=== PATIENT | male | born 1985 | race Caucasian/White ===

== ENCOUNTER 2019-10-23 18:55 | Emergency (ER) | payer SELFPAY ==
[2019-10-23] MEDS ORDERED: FAMOTIDINE 20 MG TABLET PO ONE (20:04)
[2019-10-23] MEDS ORDERED: METHYLPREDNISOLONE INJ 125 MG/2 ML SDV IM ONE (20:05)
--- NOTE | 2019-10-23 20:08 | ER Document Report ---
ED Medical Screen (RME) - General Chief Complaint: Facial Swelling Stated Complaint: SWOLLEN LIP Time Seen by Provider: 10/23/19 20:04 Mode of Arrival: Ambulatory Information source: Patient Notes: 34-year-old male presented to ED for swelling to the right side of his lip and chin. He states the lip started about an hour ago the chin started over the weekend. He also has a blood pressure of trouble over trouble. He states every time he gets his blood pressure that it is that high and he has not been on any medications. He states a couple weeks ago he did have some numbness and tingli ng to his fingers. I will treat him with some Solu-Medrol IM and some Pepcid and then he will be seen by SERJIO Rice to follow-up on his blood pressure. I have ordered some blood work for him to base his blood pressure medication on. Patient is alert oriented respirations regular and unlabored speaking in full sentences. Patient is agreeable to this. I have greeted and performed a rapid initial assessment of this patient. A comprehensive ED assessment and evaluation of the patient, analysis of test results and completion of medical decision making process will be conducted by an additional ED providers. - Related Data Allergies/Adverse Reactions: No Known Allergies Allergy (Unverified 10/23/19 19:50) Home Medications: denies Past Medical History - Social History Chew tobacco use (# tins/day): No Frequency of alcohol use: Social Drug Abuse: None Physical Exam - Vital signs Vitals: Temp Pulse Resp BP Pulse Ox 98.1 F 67 16 174/106 H 98 10/23/19 19:26 10/23/19 19:26 10/23/19 19:26 10/23/19 19:26 10/23/19 19:26 Course - Vital Signs Vital signs: Temp Pulse Resp BP Pulse Ox 98.1 F 85 16 149/99 H 100 10/23/19 19:51 10/23/19 20:03 10/23/19 20:03 10/23/19 20:03 10/23/19 20:03
[2019-10-23 20:43] LABS: ABSOLUTE EOSINOPHILS # (AUTO) 0.3 10^3/uL (0.0-0.6); ABSOLUTE LYMPHOCYTES (AUTO) 2.4 10^3/uL (0.5-4.7); ABSOLUTE MONOCYTES (AUTO) 0.5 10^3/uL (0.1-1.4); ABSOLUTE NEUT (AUTO) 5.7 10^3/uL (1.7-8.2); BASOPHILS % (AUTO) 0.3 % (0-2); EOSINOPHILS % (AUTO) 3.3 % (0-6); HEMATOCRIT 44.5 % (37.9-51.0); HEMOGLOBIN 15.3 g/dL (13.5-17.0); LYMPHOCYTES % (AUTO) 27.2 % (13-45); MEAN CORPUSCULAR HEMOGLOBIN 29.9 pg (27.0-33.4); MEAN CORPUSCULAR HGB CONC 34.3 g/dL (32.0-36.0); MEAN CORPUSCULAR VOLUME 87 fl (80-97); MONOCYTES % (AUTO) 5.5 % (3-13); PLATELET COUNT 183 10^3/uL (150-450); RED BLOOD COUNT 5.11 10^6/uL (4.35-5.55); RED CELL DISTRIBUTION WIDTH 13.1 % (11.5-14.0); SEGMENTED NEUTROPHILS % (AUTO) 63.7 % (42-78); TOTAL CELLS COUNTED % (AUTO) 100 %
[2019-10-23 20:46] LABS: APPEARANCE,URINE SLIGHTLY-CLOUDY; BILIRUBIN,URINE NEGATIVE (NEGATIVE); COLOR,URINE YELLOW; GLUCOSE, URINE NEGATIVE (NEGATIVE); KETONES,URINE TRACE mg/dL (NEGATIVE); LEUKOCYTE ESTERASE,URINE NEGATIVE (NEGATIVE); NITRITE,URINE NEGATIVE (NEGATIVE); PROTEIN,URINE NEGATIVE (NEGATIVE); URINE SPECIFIC GRAVITY 1.024; UROBILINOGEN,URINE NEGATIVE mg/dL (<2.0)
[2019-10-23 20:59] LABS: ALBUMIN 4.8 g/dL (3.5-5.0); ALKALINE PHOSPHATASE 86 U/L (38-126); ANION GAP 11 (5-19); ASPARTATE AMINO TRANSFERASE 25 U/L (17-59); BILIRUBIN,TOTAL 0.7 mg/dL (0.2-1.3); BLOOD UREA NITROGEN 14 mg/dL (7-20); CALCIUM 9.6 mg/dL (8.4-10.2); CARBON DIOXIDE 28 mmol/L (22-30); CHLORIDE 102 mmol/L (98-107); GLUCOSE 96 mg/dL (75-110); POTASSIUM 4.4 mmol/L (3.6-5.0)
[2019-10-23 22:08] VITALS: BP 139/93
--- NOTE | 2019-10-23 22:11 | ER Document Report ---
ED Allergic Reaction - General Chief Complaint: Facial Swelling Stated Complaint: SWOLLEN LIP Time Seen by Provider: 10/23/19 20:04 Mode of Arrival: Ambulatory Information source: Patient Notes: Patient is a 34-year-old male comes emergency room stating that the right side of his right upper lip is swollen. Patient states he noticed it started after he drank some coffee from 1 of the [employer] type [employer]. There occurred almost 20 minutes after the coffee. Patient denies any other known allergen type of a presentation. It was noted that while here in the emergency room patient's blood pressure was elevated in excess of 179/106. Heart rate was normal around 85. Patient states that he has a history of hypertension but is only been treated for it one time in his life with some hydrochlorothiazide and states that it did not really help that much. He denies any headache shortness of breath chest pain. Patient was originally here only for the allergic reaction but decided to be somewhat evaluated so he can get blood pressure medications to help control his blood pressure. TRAVEL OUTSIDE OF THE [place] IN LAST 30 DAYS: No - HPI Onset: Just prior to arrival Onset/Duration: Sudden Quality of pain: No pain Severity: Mild Pain Level: 2 Identified cause: No Swelling: Lip(s) - Right upper lip only Associated symptoms: None Similar symptoms previously: No Recently seen / treated by doctor: No - Related Data Allergies/Adverse Reactions: No Known Allergies Allergy (Unverified 10/23/19 19:50) Home Medications: denies Past Medical History - General Information source: Patient - Social History Smoking Status: Never Smoker Cigarette use (# per day): No Smoking Education Provided: No Frequency of alcohol use: Social Drug Abuse: None Lives with: Family Family History: None, Reviewed & Not Pertinent Patient has homicidal ideation: No Review of Systems - Review of Systems Constitutional: No symptoms reported EENT: Mouth swelling Cardiovascular: No symptoms reported Respiratory: No symptoms reported Gastrointestinal: No symptoms reported Genitourinary: No symptoms reported Male Genitourinary: No symptoms reported Musculoskeletal: No symptoms reported Skin: No symptoms reported Hematologic/Lymphatic: No symptoms reported Neurological/Psychological: No symptoms reported Physical Exam - Vital signs Vitals: Temp Pulse Resp BP Pulse Ox 98.1 F 67 16 174/106 H 98 10/23/19 19:26 10/23/19 19:26 10/23/19 19:26 10/23/19 19:26 10/23/19 19:26 Interpretation: Hypertensive - Notes Notes: PHYSICAL EXAMINATION: GENERAL: Well-appearing, well-nourished and in no acute distress. HEAD: Atraumatic, normocephalic. EYES: Pupils equal round and reactive to light, extraocular movements intact, sclera anicteric, conjunctiva are normal. ENT: Examination patient very concerned his right upper lip. Patient has some edema of the right upper lip does not cross over the centerline of the frenulum. Lower lip is all normal appearance. Oral mucosa is normal. Also noted p loni's right lower mandibular area almost close to the clip the chin there is a bald spot appeared that the is shaved secondary to patient having a area that was slightly tender to touch. Palpation of the area shows this to be nonfluctuant but does show it to have a possibility of a cellulitis secondary to a folliculitis start up. NECK: Normal range of motion, supple without lymphadenopathy LUNGS: Breath sounds clear to auscultation bilaterally and equal. No wheezes rales or rhonchi. HEART: Regular rate and rhythm without murmurs ABDOMEN: Soft, nontender, nondistended abdomen. No guarding, no rebound. No masses appreciated. Musculoskeletal: Normal range of motion, no pitting or edema. No cyanosis. NEUROLOGICAL: Normal speech, normal gait. Normal sensory, motor exams PSYCH: Normal mood, normal affect. SKIN: Warm, Dry, as described above patient has that one area in his right lower chin that appears to be a progressing type cellulitis with nonindurated area. Course - Re-evaluation Re-evalutation: 10/23/19 22:16 Patient's labs all came back normal. Given his couple different presentations the right upper lip appears to been an allergic reaction localized to the area. He did get relief by having the Solu-Medrol has gone down substantially but not completely. The second concern was his hypertension and we have had a long discussion emphasizing this with patient which is primarily why his labs were done that does not show any renal failure or function problems. I have discussed with patient I am going to place him on some antibiotics also for the cellulitis of the area. We will continue him as well on a couple of days of steroids for inflammation of the upper right lip. He has no known allergies to medications. - Vital Signs Vital signs: Temp Pulse Resp BP Pulse Ox 98.3 F 67 18 139/93 H 67 L 10/23/19 22:07 10/23/19 22:07 10/23/19 22:07 10/23/19 22:07 10/23/19 22:07 - Laboratory Result Diagrams: 10/23/19 20:20 10/23/19 20:20 Laboratory results interpreted by me: 10/23/19 20:20 Urine Ketones TRACE H Discharge - Discharge Clinical Impression: Cellulitis of chin Allergic reaction Qualifiers: Encounter type: initial encounter Qualified Code(s): T78.40XA - Allergy, unspecified, initial encounter Hypertension Qualifiers: Hypertension type: essential hypertension Qualified Code(s): I10 - Essential (primary) hypertension Condition: Stable Disposition: HOME, SELF-CARE Instructions: High Blood Pressure ([facility]), Cellulitis ([facility]), Acute Allergic Reaction ([facility]) Additional Instructions: CELLULITIS: You have an infection of your skin and underlying soft tissues called cellulitis. This is due to bacteria, which can enter through any break in the skin, or even through an irritated hair follicle. Untreated, cellulitis will usually worsen. Antibiotics are required. Usually, warm packs or warm soaks, and elevation of the infected area are recommended. You should start getting better within 24 to 36 hours. Most infections respond quickly to the right medication. Follow-up care is important, however, to check for abscess (boil) formation, unsuspected foreign body, or resistant infection. If you develop fever, chills, or if the area of infection is becoming rapidly more swollen or painful, call the doctor at once. MRSA CELLULITIS: You have an infection of your skin and underlying soft tissues called cellulitis. This is due to bacteria, which can enter through any break in the skin, or even through an irritated hair follicle. Untreated, cellulitis will usually worsen and may form an abscess which requires draining. Although many bacterial organisms can cause cellulitis and abscess formations, the most likely bacteria is Methicillin-Resistant Staph Aureus, or MRSA for short. Antibiotics are required. Usually, warm packs or warm soaks, and elevation of the infected area are recommended. You should start getting better within 24 to 36 hours. Most infections respond quickly to the right medication. Follow-up care is important, however, to check for abscess (boil) formation, unsuspected foreign body, or resistant infection. If you develop fever, chills, or if the area of infection is becoming rapidly more swollen or painful, call the doctor at once. ANTIBIOTIC THERAPY: You have been given an antibiotic prescription. It's important that you take all the medication, unless instructed otherwise by your physician. Failure to complete the entire course can result in relapse of your condition. Common side effects of antibiotics include nausea, intestinal cramping, or diarrhea. Women may develop vaginal yeast infections, and babies can get yeast (thrush) in the mouth following the use of antibiotics. Contact your physician if you develop significant side effects from this medication. Allergy to this antibiotic can result in hives, wheezing, faintness, or itching. If symptoms of allergy occur, stop the medication and call the doctor. DOXYCYCLINE: Doxycycline (Vibramycin, Doryx) is an antibiotic of the tetracycline family. This type of drug is useful for infections of the respiratory tract and genital tract, and is sometimes used for intestinal infections. Unlike most tetracyclines, doxycycline can be taken with food. It is longer acting, and (usually) less prone to side effects than regular tetracycline. Tetracycline antibiotics can stain immature teeth and SHOULD NOT BE TAKEN BY CHILDREN, NURSING MOTHERS, OR WOMEN. Tetracyclines can make you more prone to sunburn. Abdominal cramping, nausea, and diarrhea are occasional side effects. Women may experience vaginal yeast infections. Call the doctor at once if you develop hives, itching, shortness of breath, or lightheadedness.HIGH BLOOD PRESSURE, NOT TREAT: When your blood pressure was taken today it was elevated. Today's reading was . We do not think you need to have your blood pressure treated today. Sometimes, stress or illness causes a temporary elevation of your blood pressure. We suggest that you get your blood pressure measured again during the next few days to see if this elevated blood pressure is more than a temporary abnormality. If your blood pressure is greater than 150/90 on each occasion, you must have treatment. Some simple things you can do to help are: If you have blood pressure medicine but aren't using it regularly, start taking it again. Get some aerobic exercise for at least 20 minutes on a daily basis. (See your doctor before beginning a new exercise program.) Eat a low-fat diet. Lose excess weight. Avoid salty foods and avoid adding salt to any of the foods you eat. Avoid diet pills, decongestants, "energizing" herbs, and other medicines that elevate blood pressure. If left untreated, hypertension greatly enhances your risk for developing heart disease and strokes. Please don't ignore this problem. HIGH BLOOD PRESSURE REQUIRING TREATMENT: Your blood pressure is high. This is called "hypertension." Today's reading was (normal is less than 140/90). Your history and exam suggest that this is not a temporary problem. You need treatment of your blood pressure. If left untreated, high blood pressure greatly increases your risk of heart attack and stroke. Please don't ignore this problem. If you have blood pressure medicine but aren't using it regularly, start taking it again. Some simple things you can do to help are: Get some aerobic exercise for at least 20 minutes on a daily basis. (See your doctor before beginning any new exercise program.) Eat a low-fat diet. Lose excess weight. Avoid salty foods and avoid adding salt to any of the foods you eat. Avoid diet pills, decongesta nts, "energizing" herbs, and other medicines that elevate blood pressure. There are many different medicines that treat blood pressure. If your medication causes unpleasant side effects, call your doctor. There are others you can try. Treating hypertension is a life-long investment in your health. C HYDROCHLOROTHIAZIDE: Hydrochlorothiazide is a diuretic medication. Diuretics are often called "water pills." The medicine flushes excess salt and water from the body. Diuretics are used for fluid retention (such as heart failure, cirrhosis, or lung disease) and for blood pressure control. Often hydrochlorothiazide is combined with other medicines in the same pill. Most patients prefer to take the medicine in the morning. Hydrochlorothiazide makes extra urine, which can be a problem if you take the pill at night. Diuretics make you lose potassium. Sometimes a good diet with plenty of fruit is enough to replace it. Sometimes a potassium supplement is necessary. Or, hydrochlorothiazide may be combined with medicines that prevent potassium loss. We usually recommend a blood potassium test in a few weeks. Contact your doctor if you develop extreme fatigue, muscle weakness, lethargy, confusion, or palpitations. CALCIUM CHANNEL BLOCKERS: A medication of the calcium channel anali type has been prescribed for you. Examples of this type of medicine are Calan, Isoptin, Procardia, and Cardizem. These medicines have a variety of uses, including prevention of angina attacks, treatment of blood pressure, regulation of certain heart rhythm p roblems, and prevention of migraine headaches. Calcium channel blockers work by interfering with the flow of calcium in cell membranes. This results in dilation of blood vessels, and slowing of electrical conduction in the heart. A slight dizziness (due to a fall in blood pressure) may occur with the first dose, and sometimes even with later doses. This may make you prone to dizziness if you stand up suddenly. Call the doctor if lightheadedness is severe, or if you develop palpi tations, shortness of breath, or any other new or alarming symptoms. CELLULITIS: You have an infection of your skin and underlying soft tissues called cellulitis. This is due to bacteria, which can enter through any break in the skin, or even through an irritated hair follicle. Untreated, cellulitis will usually worsen. Antibiotics are required. Usually, warm packs or warm soaks, and elevation of the infected area are recommended. You should start getting better within 24 to 36 hours. Most infections respond quickly to the right medication. Follow-up care is important, however, to check for abscess (boil) formation, unsuspected foreign body, or resistant infection. If you develop fever, chills, or if the area of infection is becoming rapidly more swollen or painful, call the doctor at once. Remember we also discussed that with high blood pressures can take you some time for you to feel better. As a matter fact you will probably feel worse for the first 10 to 21 days on medication and you did off medication. Make yourself work through it because after your body becomes accustomed to the lower blood pressures you will start feeling much better. Follow-up with the primary care as soon as possible. Prescriptions: Prednisone [Deltasone 20 mg Tablet] 20 mg PO BID #6 tablet Doxycycline Monohydrate 100 mg PO BID #20 tablet Hydrochlorothiazide [Hydrodiuril 25 mg Tablet] 25 mg PO QAM #30 tablet Amlodipine Besylate [Norvasc 5 mg Tablet] 5 mg PO DAILY #30 tablet Forms: Elevated Blood Pressure Referrals: [facility] [Provider Group] - Follow up as needed
== END 2019-10-23 22:40 | disposition home or self-care (01) ==
LOC: ER 18:55
DX: T78.40XA Allergy, unspecified, initial encounter (principal); X58.XXXA Exposure to other specified factors, initial encounter; L03.211 Cellulitis of face; K13.0 Diseases of lips; I10 Essential (primary) hypertension
CPT/HCPCS: 99283; 96372; 36415; 83690; 85025; 80053; 81001; J2930